=== PATIENT | male | born 1960 | race Caucasian/White ===

== ENCOUNTER 2018-03-18 12:14 | Emergency (ER) | payer BC ==
[2018-03-18] MEDS ORDERED: Aspirin 81 MG Tab.Chew PO ONE (12:24)
[2018-03-18] MEDS ORDERED: Sodium Chloride 0.9% 1,000 ML IV ONE ×2 (12:45→13:10)
--- NOTE | 2018-03-18 12:58 | EDM.PDOC ---
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, at 10:30 AM he felt lightheaded and dizzy, no sob , no cp, no DOTSON, he had tingling in his L hand, some N here he is mildly diaphoretic, dec'd turgor and appears dehydrated, still N, no CP, still lightheaded EKG sinus scooter 48, no ST change, no comparison not on CCB or BB or dig, pt does not know his baseline HR given ASA 324 mg chewed on arrival, labs pending, NS IVF bolus has been hung BP 134/76 supine, PO 99% h/o stent x 2 in 2002 which did not work, 2m later had CABG x 5, no cardiac issues since then, sees [place] [facility] yearly, last stress test 4y ago by his recollection drank pop and a "little water" today nl soft BM x 1 this AM, voiding is normal pt reports sob when he has had CV issues in the past, no sob now here, concurs with hx - Related Data Allergies Allergy/AdvReac Type Severity Reaction Status Date / Time Sulfa (Sulfonamide Allergy Hives Verified 03/18/18 12:36 Antibiotics) Home Meds: Home Meds Aspirin [Nestor Chewable Aspirin] 81 mg PO BEDTIME 12/29/13 [History] Hypromellose [Artificial Tears] 15 ml OP ASDIRECTED 12/29/13 [History] Lisinopril [Prinivil] 10 mg PO DAILY 12/29/13 [History] Naproxen Sodium [Aleve] 220 mg PO BID PRN 12/29/13 [History] Rosuvastatin [Crestor] 40 mg PO DAILY 12/29/13 [History] Sildenafil [Viagra] 100 mg PO ASDIRECTED 12/29/13 [History] Azithromycin [Zithromax] 250 mg PO DAILY #4 tab 03/18/18 [Rx] Meloxicam 15 mg PO DAILY 03/18/18 [History] Omeprazole 20 mg PO DAILY 03/18/18 [History] Sildenafil Citrate [Sildenafil] 40 mg PO ASDIRECTED 03/18/18 [History] Sildenafil Citrate [Sildenafil] 100 mg PO ASDIRECTED PRN 03/18/18 [History] buPROPion [buPROPion XL] 150 mg PO DAILY 03/18/18 [History] ED ROS GENERAL - Review of Systems Review Of Systems: See Below Constitutional: Reports: No Symptoms, Diaphoresis. Denies: Fever, Malaise, Weakness, Fatigue, Night Sweats, Decreased Appetite HEENT: Reports: No Symptoms Respiratory: Reports: No Symptoms Cardiovascular: Reports: No Symptoms. Denies: Chest Pain Endocrine: Reports: No Symptoms GI/Abdominal: Reports: No Symptoms : Reports: No Symptoms Musculoskeletal: Reports: No Symptoms Skin: Reports: No Symptoms Neurological: Reports: No Symptoms Psychiatric: Reports: No Symptoms Hematologic/Lymphatic: Reports: No Symptoms Immunologic: Reports: No Symptoms ED EXAM, GENERAL - Physical Exam Exam: See Below Exam Limited By: No Limitations General Appearance: Alert, WD/WN, No Apparent Distress, Other (alert, pleasant, nl speech, good eye contact, NAD, nontoxic, nonill) Eye Exam: Bilateral Eye: Normal Inspection Ears: Normal External Exam, Hearing Grossly Normal Nose: Normal Inspection, Normal Mucosa, No Blood Throat/Mouth: Normal Inspection, Normal Lips, Normal Voice, No Airway Compromise Head: Atraumatic, Normocephalic Neck: Normal Inspection, Supple, Non-Tender, Full Range of Motion Respiratory/Chest: No Respiratory Distress, Lungs Clear, Normal Breath Sounds, No Accessory Muscle Use, Chest Non-Tender Cardiovascular: Regular Rate, Rhythm, No Edema, No Gallop, Other (skin damp at head and neck, no beads of sweat, 2/6 NEFTALY at LSB, scooter, quiet precordium) GI/Abdominal: Soft, Non-Tender, No Distention, No Mass Back Exam: Normal Inspection, Full Range of Motion. No: CVA Tenderness (R), CVA Tenderness (L) Extremities: Normal Inspection, Normal Range of Motion, Non-Tender, No Pedal Edema Neurological: Alert, Oriented, CN II-XII Intact, Normal Cognition, No Motor/ Sensory Deficits Psychiatric: Normal Affect, Normal Mood Skin Exam: Warm, Dry, Intact, Normal Color, No Rash Lymphatic: No Adenopathy Course - Vital Signs Last Recorded V/S: Last Vital Signs Temp 36.4 C 03/18/18 12:15 Pulse 45 L 03/18/18 12:15 Resp 15 03/18/18 12:15 BP 140/93 H 03/18/18 12:15 Pulse Ox 100 03/18/18 12:15 Orthostatic Blood Pressure [ 157/89 Standing] Orthostatic Blood Pressure [ 155/86 Sitting] Orthostatic Blood Pressure [ 139/73 Supine] - Orders/Labs/Meds Orders: Active Orders 24 hr Category Date Time Status Orthostatic Vital Signs [RC] ASDIRECTED Care 03/18/18 13:10 Ordered Ang Chest [CT] Stat Exams 03/18/18 13:17 Ordered Chest 1V Frontal [CR] Stat Exams 03/18/18 12:45 Ordered UA W/MICROSCOPIC [URIN] Stat Lab 03/18/18 12:45 Ordered Sodium Chloride 0.9% [Normal Saline] 1,000 ml Med 03/18/18 13:10 Ordered IV .BOLUS EKG 12 Lead [EK] Routine Ther 03/18/18 12:45 Ordered Medication Orders Sodium Chloride (Normal Saline) 1,000 mls @ 999 mls/hr IV .BOLUS ONE Stop: 03/18/18 14:10 Labs: Laboratory Tests 03/18/18 03/18/18 03/18/18 Range/Units 12:35 12:35 12:35 WBC 5.6 (4.5-12.0) X10-3/uL RBC 4.85 (4.30-5.75) x10(6)uL Hgb 15.0 (11.5-15.5) g/dL Hct 43.0 (30.0-51.3) % MCV 88.7 (80-96) fL MCH 31.0 (27.7-33.6) pg MCHC 34.9 (32.2-35.4) g/dL RDW 12.0 (11.5-15.5) % Plt Count 216 (125-369) X10(3)uL MPV 7.6 (7.4-10.4) fL Neut % (Auto) 60.4 (46-82) % Lymph % (Auto) 25.8 (13-37) % [place] % (Auto) 10.3 (4-12) % Eos % (Auto) 3 (1.0-5.0) % Baso % (Auto) 1 (0-2) % Neut # (Auto) 3.4 (1.6-8.3) # Lymph # (Auto) 1.4 (0.6-5.0) # [place] # (Auto) 0.6 (0.0-1.3) # Eos # (Auto) 0.2 (0.0-0.8) # Baso # (Auto) 0.0 (0.0-0.2) # D-Dimer, Quantitative 1.32 H (0.0-0.59) mg/LFEU Sodium 139 (135-145) mmol/L Potassium 3.9 (3.5-5.3) mmol/L Chloride 102 (100-110) mmol/L Carbon Dioxide 29 (21-32) mmol/L BUN 17 (7-18) mg/dL Creatinine 1.0 (0.70-1.30) mg/dL Est Cr Clr Drug Dosing 83.14 mL/min Estimated GFR (MDRD) > 60 (>60) BUN/Creatinine Ratio 17.0 (9-20) Glucose 76 L (80-116) mg/dL Calcium 9.0 (8.6-10.2) mg/dL Total Bilirubin 0.5 (0.1-1.3) mg/dL AST 23 (5-25) IU/L ALT 31 (12-36) U/L Alkaline Phosphatase 55 L (56-112) IU/L Troponin I (<0.017-0.056) ng/mL C-Reactive Protein (0.5-0.9) mg/dL NT-Pro-B Natriuret Pep (<=125) pg/mL Total Protein 7.2 (6.0-8.0) g/dL Albumin 3.7 (3.5-5.2) g/dL Globulin 3.5 g/dL Albumin/Globulin Ratio 1.1 / Range/Units 12:35 WBC (4.5-12.0) X10-3/uL RBC (4.30-5.75) x10(6)uL Hgb (11.5-15.5) g/dL Hct (30.0-51.3) % MCV (80-96) fL MCH (27.7-33.6) pg MCHC (32.2-35.4) g/dL RDW (11.5-15.5) % Plt Count (125-369) X10(3)uL MPV (7.4-10.4) fL Neut % (Auto) (46-82) % Lymph % (Auto) (13-37) % [place] % (Auto) (4-12) % Eos % (Auto) (1.0-5.0) % Baso % (Auto) (0-2) % Neut # (Auto) (1.6-8.3) # Lymph # (Auto) (0.6-5.0) # [place] # (Auto) (0.0-1.3) # Eos # (Auto) (0.0-0.8) # Baso # (Auto) (0.0-0.2) # D-Dimer, Quantitative (0.0-0.59) mg/LFEU Sodium (135-145) mmol/L Potassium (3.5-5.3) mmol/L Chloride (100-110) mmol/L Carbon Dioxide (21-32) mmol/L BUN (7-18) mg/dL Creatinine (0.70-1.30) mg/dL Est Cr Clr Drug Dosing mL/min Estimated GFR (MDRD) (>60) BUN/Creatinine Ratio (9-20) Glucose (80-116) mg/dL Calcium (8.6-10.2) mg/dL Total Bilirubin (0.1-1.3) mg/dL AST (5-25) IU/L ALT (12-36) U/L Alkaline Phosphatase (56-112) IU/L Troponin I < 0.017 L (<0.017-0.056) ng/mL C-Reactive Protein 0.9 (0.5-0.9) mg/dL NT-Pro-B Natriuret Pep 131 H (<=125) pg/mL Total Protein (6.0-8.0) g/dL Albumin (3.5-5.2) g/dL Globulin g/dL Albumin/Globulin Ratio Meds: Medications Generic Name Dose Route Start Last Admin Trade Name Freq PRN Reason Stop Dose Admin Sodium Chloride 1,000 mls @ 999 mls/hr 03/18/18 13:10 Normal Saline IV 03/18/18 14:10 .BOLUS ONE Discontinued Medications Generic Name Dose Route Start Last Admin Trade Name Jackelin PRN Reason Stop Dose Admin Aspirin 324 mg 03/18/18 12:24 03/18/18 12:26 Aspirin PO 03/18/18 12:25 324 mg ONETIME ONE Administration Sodium Chloride 1,000 mls @ 999 mls/hr 03/18/18 12:45 03/18/18 12:50 Normal Saline IV 03/18/18 13:45 999 mls/hr .BOLUS ONE Administration Iopamidol 100 ml 03/18/18 13:28 Isovue-370 (76%) IV 03/18/18 13:29 ONETIME ONE - Re-Assessments/Exams Free Text/Narrative Re-Assessment/Exam: 03/18/18 13:50 no orthostatic CxR with peribronchial cuffing and mild vascular dilatation c/w mild pul edema by my exam altho radiologist read it as neg problem list (from clinic): obesity, former smoker, CAD, s/p CABG, hyperlipidemia, plantar fascititis, htn, myalgia and myositis, benigh neoplasm of colon, arthropathy, DJD, hemorrhoids, gross hematuria, dyspnea, ascending aorta dilatation 1st trop neg, BNP slightly inc'd CRP 0.9, d-dimer 1.3, possibly c/w connective tissue DO chest CTA order, PO 100% pt feeling better after 1st liter NS, eating a lunch currently, will go for CTA when new IV started HR 58 in office 01-15-17 hgb 14.1 on 11-08-17 last EKG at [place] on 09-15-15 03/18/18 15:20 chest CTA is neg for PE, does show a slight infiltrate at L base suspicious for pneumonia as per Dr Lyons a pneumonia is c/w a CRP 0.9 at ULN and an inc'd d-dimer 1.32, will give a dose of azithro here does have an inc'd BNP and probably mild pul edema on CxR by my read asked re his anxiety meds, which he should d/w Dr Jaramillo further u/a neg HR 65 and up 20 points after IVFs trop x 2 neg Departure - Departure Time of Disposition: 15:23 Disposition: Home, Self-Care 01 Condition: Good Clinical Impression: Left lower lobe pneumonia, Pulmonary edema, Elevated brain natriuretic peptide (BNP) level, Dehydration, Sinus bradycardia Prescriptions: Azithromycin [Zithromax] 250 mg PO DAILY #4 tab Instructions: Community-Acquired Pneumonia, Adult, Pulmonary Edema, Dehydration , Adult, Rehydration, Adult, Bradycardia, Adult Referrals: Bryce Seth MD [Primary Care Provider] - Forms: ED Department Discharge Additional Instructions: Continue current meds. For pneumonia, take azithromycin 250 mg daily for the next 4 days. Get adequate rest. Cut back on your work schedule for the next week. Eat 3 meals a day. Drink 2 liters of fluids daily without caffeine when working indoors, 3 liters when working outdoors, and 4 liters when working outdoors in hot weather. 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 You do show evidence of mild heart failure and your facility maintenance supervisor may want to adjust your heart meds slightly. There also does appear to be a mild amount of pulmonary edema (in addition to the pneumonia) on your chest x-ray. See Dr Jaramillo in the next week regarding your general health issues and to follow up the pneumonia If you have additional episodes of feeling sweaty at home, check (and write down ) your blood pressure and your heart rate in both the sitting and standing positions. As feeling sweaty can be a sign of angina, even without chest pain, many times it can be reasonable to come to the Emergency Department as well. Return to Emergency Department if you are feeling worse. - My Orders Last 24 Hours: My Active Orders 03/18/18 12:45 Chest 1V Frontal [CR] Stat UA W/MICROSCOPIC [URIN] Stat EKG 12 Lead [EK] Routine 03/18/18 13:10 Orthostatic Vital Signs [RC] ASDIRECTED Sodium Chloride 0.9% [Normal Saline] 1,000 ml IV .BOLUS 03/18/18 13:17 Ang Chest [CT] Stat - Assessment/Plan Last 24 Hours: My Active Orders 03/18/18 12:45 Chest 1V Frontal [CR] Stat UA W/MICROSCOPIC [URIN] Stat EKG 12 Lead [EK] Routine 03/18/18 13:10 Orthostatic Vital Signs [RC] ASDIRECTED Sodium Chloride 0.9% [Normal Saline] 1,000 ml IV .BOLUS 03/18/18 13:17 Ang Chest [CT] Stat
[2018-03-18] MEDS ORDERED: Iopamidol 755 Mg/ML 100 ML Bottle IV ONE (13:28)
--- NOTE | 2018-03-18 14:14 | CR ---
INDICATION: Weak. CHEST: An AP upright view of the chest was obtained 03/18/2018 and compared with 03/14/2012. There is again evidence of median sternotomy. Overlying EKG leads are noted. The heart appears to be within normal limits in size and shape. The aorta is slightly more tortuous than on the previous examination with some minimal calcification suggested in the arch. An active infiltrate or effusion was not identified. IMPRESSION: No acute process. MTDD
--- NOTE | 2018-03-18 14:59 | CT ---
INDICATION: Increased D-dimer, weakness, diaphoretic, history of CABG times 5. CT ANGIOGRAPHY OF THE CHEST: Spiral 1.25 mm axial sections were obtained through the chest with 85 mL Isovue 370 at 2.5 mL/second with sagittal and coronal reconstructions, 03/18/2018. No comparison CT was available. Comparison chest from 03/18/2018 is available. Total exam DLP = 967.88 mGy-cm. There is an appearance of some very minimal patchy infiltration at the lung bases bilaterally in the lower lobes and on the left in the lingula. Fibrosis could have a similar appearance, but pneumonia is felt to be likely, especially on the left. This should be correlated clinically, however. No gross consolidating pneumonia or effusion was identified. There is, however, noted an area of pleural thickening at the left lung base posteriorly. This is of indeterminate etiology and could be on the basis of previous infection or a process such as asbestosis, although there is no calcification seen in that area at this time. Coronary artery calcification is seen in this patient with history of multiple CABG. The heart is somewhat prominent in size - upper limits of normal. No pericardial effusion is seen. In the mediastinum, there is only minimal lymphadenopathy, which is nonspecific. No mediastinal masses were seen. No evidence of pulmonary emboli could be identified. There is suggestion of some minimal renal cortical scarring with the upper abdomen visualized, otherwise unremarkable, except for some left renal artery calcification. IMPRESSION: 1. No evidence of pulmonary embolus. 2. Findings suggest patchy pneumonia at the lung bases, left greater than right. 3. Minimal renal cortical scarring. 4. Renal arterial disease suggested on the left - no significant stenosis, however. Report was called to Dr. Hansen at 1439 hours on 03/18/2018. [facility]
[2018-03-18] MEDS ORDERED: Azithromycin 500 MG Tab PO ONE (15:12)
== END 2018-03-18 15:45 | disposition home or self-care (01) ==
LOC: FB.ED 12:14
DX: J18.9 Pneumonia, unspecified organism (principal); J81.1 Chronic pulmonary edema; E86.0 Dehydration; R00.1 Bradycardia, unspecified; R79.89 Other specified abnormal findings of blood chemistry; Z88.2 Allergy status to sulfonamides; Z79.899 Other long term (current) drug therapy; Z79.82 Long term (current) use of aspirin
CPT/HCPCS: 36415; 71045; 71275; 80053; 81001; 83880; 84484; 85025; 85379; 86140; 93005; 96360; 96361; 99285; A9270; J7030; Q9967

== ENCOUNTER 2018-12-17 11:22 | Emergency (ER) | payer BC ==
--- NOTE | 2018-12-17 12:04 | EDM.PDOC ---
ED HPI GENERAL MEDICAL PROBLEM - General Chief Complaint: Cardiovascular Problem Stated Complaint: CHEST PAIN Time Seen by Provider: 12/17/18 11:45 Source of Information: Reports: Patient, Family, Old Records History Limitations: Reports: No Limitations - History of Present Illness INITIAL COMMENTS - FREE TEXT/NARRATIVE: Bry comes into [facility] ED with sxs of headache and dizziness i.e. lt headiness with exacerbations and remission of sxs over the past few weeks. There is no eleazar LOC, loss of balance, or focal weakness or loss of coordination. Sxs occur without provocation, and are fleeting. There is no chest pain, SOB, change in skin color, palpitations, sweats, GI upset or trauma hx. He does have a PMH of CAD, sp CABG x 5, a GXT last fall that was reportedly normal, and no hx of cardiac dysrythmia. He also has a hx of GERARDO, present for years, and recently tapered off Welbutrin and started on Lexapro 20 mg bid. - Related Data Allergies Allergy/AdvReac Type Severity Reaction Status Date / Time Sulfa (Sulfonamide Allergy Hives Verified 12/17/18 12:40 Antibiotics) Home Meds: Home Meds Aspirin [Nestor Chewable Aspirin] 81 mg PO BEDTIME 12/29/13 [History] Hypromellose [Artificial Tears] 15 ml OP ASDIRECTED 12/29/13 [History] Lisinopril [Prinivil] 10 mg PO DAILY 12/29/13 [History] Rosuvastatin [Crestor] 40 mg PO DAILY 12/29/13 [History] Sildenafil [Viagra] 100 mg PO ASDIRECTED 12/29/13 [History] Meloxicam 15 mg PO DAILY 03/18/18 [History] Omeprazole 20 mg PO DAILY 03/18/18 [History] Sildenafil Citrate [Sildenafil] 40 mg PO ASDIRECTED 03/18/18 [History] Sildenafil Citrate [Sildenafil] 100 mg PO ASDIRECTED PRN 03/18/18 [History] buPROPion [buPROPion XL] 75 mg PO DAILY 03/18/18 [History] Escitalopram [Lexapro] 20 mg PO DAILY 12/17/18 [History] hydrOXYzine pamoate [Hydroxyzine Pamoate] 1 cap PO ASDIRECTED PRN 12/17/18 [ History] Past Medical History HEENT History: Reports: Impaired Vision Cardiovascular History: Reports: Bypass, CAD Psychiatric History: Reports: Anxiety - Past Surgical History Cardiovascular Surgical History: Reports: Coronary Artery Bypass Social & Family History - Family History Family Medical History: Unobtainable - Caffeine Use Caffeine Use: Reports: None ED ROS GENERAL - Review of Systems Review Of Systems: See Below Constitutional: Reports: No Symptoms HEENT: Reports: Other (dizziness ie lt headiness) Respiratory: Reports: No Symptoms Cardiovascular: Reports: Lightheadedness Endocrine: Reports: No Symptoms GI/Abdominal: Reports: No Symptoms : Reports: No Symptoms Musculoskeletal: Reports: No Symptoms Skin: Reports: No Symptoms Neurological: Reports: Dizziness Psychiatric: Reports: Anxiety Hematologic/Lymphatic: Reports: No Symptoms Immunologic: Reports: No Symptoms ED EXAM, DIZZINESS - Physical Exam Exam: See Below Exam Limited By: No Limitations General Appearance: Alert, WD/WN, No Apparent Distress, Anxious, Obese Eye Exam: Bilateral Eye: EOMI, Normal Inspection, PERRL Ears: Normal External Exam, Normal Canal, Hearing Grossly Normal, Normal TMs Nose: Normal Inspection Throat/Mouth: Normal Inspection, Normal Lips, Normal Teeth, Normal Gums, Normal Oropharynx, Normal Voice, No Airway Compromise Head Exam: Normocephalic Neck: Normal Inspection, Supple, Non-Tender, Full Range of Motion Respiratory/Chest: No Respiratory Distress, Lungs Clear, Normal Breath Sounds, No Accessory Muscle Use, Chest Non-Tender Cardiovascular: Normal Peripheral Pulses, No Edema, No Gallop, No JVD, No Murmur , Bradycardia GI/Abdominal: Normal Bowel Sounds, Soft, Non-Tender, No Organomegaly, No Distention, No Mass (Male) Exam: Deferred Rectal (Males) Exam: Deferred Neurological: Alert, Normal Dorsiflexion, CN II-XII Intact, Normal Plantar Flexion, Normal Gait, Normal Reflexes, No Motor/Sensory Deficits, Oriented x 3 Back Exam: Normal Inspection Extremities: Normal Inspection Psychiatric: Anxious Skin Exam: Warm, Dry, Intact, Normal Color, No Rash Course - Vital Signs Text/Narrative:: Bry remained stable and unchanged during ED visit. His VR in high 40's-low 50 's at rest, increasing to mid 50's- low 60's with exertion. His BP remained stable. A review of past EKG 2018 and anesthesia record from 2013 noted VR in 50 's, suggesting chronic bradycardia. Screening studies were normal range, including TSH. I administered Tylenol 650 mg po before discharge. He will follow up with PCP. Last Recorded V/S: Last Vital Signs Temp 36.4 C 12/17/18 11:30 Pulse 52 L 12/17/18 11:30 Resp 16 12/17/18 11:30 BP 168/89 H 12/17/18 11:30 Pulse Ox 98 12/17/18 11:30 - Orders/Labs/Meds Orders: Active Orders 24 hr Category Date Time Status EKG Documentation Completion [RC] ASDIRECTED Care 12/17/18 11:59 Active Acetaminophen [Tylenol] Med 12/17/18 13:44 Once 650 mg PO NOW ONE EKG 12 Lead [EK] Routine Ther 12/17/18 11:57 Ordered Labs: Laboratory Tests 12/17/18 12/17/18 12/17/18 Range/Units 12:09 12:09 12:09 WBC 5.3 (4.5-12.0) X10-3/uL RBC 4.74 (4.30-5.75) x10(6)uL Hgb 14.5 (13.5-17.8) g/dL Hct 43.1 (30.0-51.3) % MCV 90.9 (80-96) fL MCH 30.5 (27.7-33.6) pg MCHC 33.5 (32.2-35.4) g/dL RDW 12.2 (11.5-15.5) % Plt Count 231 (125-369) X10(3)uL MPV 7.3 L (7.4-10.4) fL Neut % (Auto) 64.9 (46-82) % Lymph % (Auto) 21.9 (13-37) % [place] % (Auto) 8.6 (4-12) % Eos % (Auto) 4 (1.0-5.0) % Baso % (Auto) 1 (0-2) % Neut # (Auto) 3.4 (1.6-8.3) # Lymph # (Auto) 1.2 (0.6-5.0) # [place] # (Auto) 0.5 (0.0-1.3) # Eos # (Auto) 0.2 (0.0-0.8) # Baso # (Auto) 0.0 (0.0-0.2) # Sodium 139 (135-145) mmol/L Potassium 4.4 (3.5-5.3) mmol/L Chloride 101 (100-110) mmol/L Carbon Dioxide 30 (21-32) mmol/L BUN 16 (7-18) mg/dL Creatinine 1.2 (0.70-1.30) mg/dL Est Cr Clr Drug Dosing TNP Estimated GFR (MDRD) > 60 (>60) BUN/Creatinine Ratio 13.3 (9-20) Glucose 92 (80-116) mg/dL Calcium 8.7 (8.6-10.2) mg/dL Total Bilirubin 0.7 (0.1-1.3) mg/dL AST 23 (5-25) IU/L ALT 28 (12-36) U/L Alkaline Phosphatase 59 (56-112) IU/L Troponin I < 0.017 L (<0.017-0.056) ng/mL Total Protein 6.7 (6.0-8.0) g/dL Albumin 3.7 (3.5-5.2) g/dL Globulin 3.0 g/dL Albumin/Globulin Ratio 1.2 TSH, Ultra Sensitive 0.76 (0.36-3.74) IU/mL Departure - Departure Time of Disposition: 13:47 Disposition: Home, Self-Care 01 Condition: Fair Clinical Impression: Dizziness, nonspecific - Discharge Information *PRESCRIPTION DRUG MONITORING PROGRAM REVIEWED*: Not Applicable *COPY OF PRESCRIPTION DRUG MONITORING REPORT IN PATIENT ANGELLA: Not Applicable Referrals: Moy Tapia MD [Primary Care Provider] - Forms: ED Department Discharge - Problem List & Annotations (1) Dizziness, nonspecific SNOMED Code(s): 762846787, 879383945 Code(s): R42 - DIZZINESS AND GIDDINESS Status: Acute Current Visit: Yes Annotation/Comment:: I suggested follow up with PCP, consider consultation with specialists if indicated. - Problem List Review Problem List Initiated/Reviewed/Updated: Yes - My Orders Last 24 Hours: My Active Orders 12/17/18 11:57 EKG 12 Lead [EK] Routine 12/17/18 11:59 EKG Documentation Completion [RC] ASDIRECTED 12/17/18 13:44 Acetaminophen [Tylenol] 650 mg PO NOW ONE - Assessment/Plan Last 24 Hours: My Active Orders 12/17/18 11:57 EKG 12 Lead [EK] Routine 12/17/18 11:59 EKG Documentation Completion [RC] ASDIRECTED 12/17/18 13:44 Acetaminophen [Tylenol] 650 mg PO NOW ONE Plan: Follow up with PCP.
[2018-12-17] MEDS: Acetaminophen 325 MG Tab ONE (13:52)
[2018-12-17] MEDS: Acetaminophen 325 MG Tab PO ONE (13:52)
== END 2018-12-17 13:55 | disposition home or self-care (01) ==
LOC: FB.ED 11:22
DX: R42 Dizziness and giddiness (principal); Z88.2 Allergy status to sulfonamides; Z79.899 Other long term (current) drug therapy
CPT/HCPCS: 36415; 80053; 84443; 84484; 85025; 93005; 99284-25; A9270-GY

== ENCOUNTER 2022-12-13 07:06 | Day surgery (SDC) | payer BC, OTHER ==
[~2022-12-13 07:06] MED LIST: Lactated Ringers 1,000 ML IV SCH; Sodium Chloride 0.9% 10 ML Syringe FLUSH PRN
[2022-12-13] MEDS ORDERED: Propofol 200 MG/20 ML SDV IV ONE (07:07)
[2022-12-13] MEDS ORDERED: Simethicone Drops 40 MG/0.6 ML 30 ML Bottle PO ONE (08:16)
== END 2022-12-13 09:50 | disposition home or self-care (01) ==
LOC: FB.SDS 07:06
PROVIDERS: ATTEND Surgery
DX: K62.1 Rectal polyp (principal); K57.30 Diverticulosis of large intestine without perforation or abscess without bleeding; K40.90 Unilateral inguinal hernia, without obstruction or gangrene, not specified as recurrent; M19.90 Unspecified osteoarthritis, unspecified site; I25.10 Atherosclerotic heart disease of native coronary artery without angina pectoris; E78.5 Hyperlipidemia, unspecified; I10 Essential (primary) hypertension; Z86.010 Personal history of colon polyps; Z79.82 Long term (current) use of aspirin; Z79.899 Other long term (current) drug therapy; Z88.2 Allergy status to sulfonamides; Z87.891 Personal history of nicotine dependence
CPT/HCPCS: 00812; 88305; A9270-GY; J2704; J7120